=== PATIENT | female | born 1975 | race Caucasian/White ===

== ENCOUNTER 2017-05-05 19:25 | Observation (INO) | payer OTHER ==
[2017-05-05 19:26] VITALS: BP 96/81; PULSE 89; RESP 16; TEMP 98.5; O2SAT 100
[2017-05-05] MEDS ORDERED: SODIUM CHLOR 0.9% 1000 ML INJ 1,000 ML IV SCH (19:43)
[2017-05-05] MEDS ORDERED: SODIUM CHLORIDE 0.9% FLUSH 10 ML FLUSH IV FLUSH PRN (19:45)
[2017-05-05] MEDS ORDERED: ONDANSETRON HCL 4 MG/2 ML VIAL IVP ONE (19:45)
--- NOTE | 2017-05-05 19:49 | PD ---
HPI Chief Complaint: Abdominal Pain Time Seen by Provider: 19:36 Travel History International Travel<30 days: No Contact w/Intl Traveler<30days: No Traveled to known affect area: No History of Present Illness HPI 41-year-old female presents to the ED for evaluation of 12 hour history of abdominal pain and bloating. Patient states when she woke up this morning she had a little bit of abdominal pain. She endorses a small, normal bowel movement that did not resolve her symptoms. She took 2 Aleve and a dose of Gaviscon and went to work. She states that throughout the course of the day the pain has worsened. She endorses passing gas from above and below. She has small meal around 1 PM. She endorses a second bowel movement around 3 PM. She endorses continued bloating, mild nausea. She states the pain waxes and wanes, radiates to the shoulder. Rated 10/10 maximally. Pain improved by lying still. She denies fever or chills. She denies vomiting, melena, hematochezia, dysuria , hematuria. She denies history of similar episodes. She endorses history of section. She denies recent antibiotic use. LMP 10/30. Denies vaginal bleeding or discharge. PFSH Past Medical History ?: Unknown Social History Tobacco Use: No Allergies-Medications (Allergen,Severity, Reaction): Coded Allergies: No Known Allergies (Unverified , 05/05/17) Reported Meds & Prescriptions Reported Meds & Active Scripts Active Reported Crestor (Rosuvastatin Calcium) 10 Mg Tab 10 Mg PO DAILY Aspirin Low Dose (Aspirin) 81 Mg Chew 81 Mg CHEW DAILY Review of Systems Except as stated in HPI: all other systems reviewed are Neg Physical Exam Narrative GENERAL: Well-nourished, well-developed white female in no acute distress. SKIN: Focused skin assessment warm/dry. HEAD: Normocephalic. EYES: No scleral icterus. No injection or drainage. NECK: Supple, trachea midline. No JVD or lymphadenopathy. CARDIOVASCULAR: Regular rate and rhythm without murmurs, gallops, or rubs. RESPIRATORY: Breath sounds equal bilaterally. No accessory muscle use. GASTROINTESTINAL: Abdomen mildly distended, diffusely tender, worse in the left upper and left lower quadrants. No palpable masses. Active bowel sounds. MUSCULOSKELETAL: No cyanosis, or edema. BACK: Nontender without obvious deformity. No CVA tenderness. Data Data Last Documented VS Vital Signs Date Time Temp Pulse Resp B/P (MAP) Pulse Ox O2 Delivery O2 Flow Rate FiO2 05/05/17 21:57 83 19 98/60 (73) 100 Room Air 05/05/17 19:26 98.5 Orders Orders Complete Blood Count With Diff (05/05/17 19:43) Comprehensive Metabolic Panel (05/05/17 19:43) Lipase (05/05/17 19:43) Lactic Acid (05/05/17 19:43) Prothrombin Time / Inr (Pt) (05/05/17 19:43) Act Partial Throm Time (Ptt) (05/05/17 19:43) Urinalysis - C+S If Indicated (05/05/17:43) Ct Abd/Pel W Iv Contrast(Rout) (05/05/17 19:43) Iv Access Insert/Monitor (05/05/17 19:43) Ecg Monitoring (05/05/17 19:43) Oximetry (05/05/17:43) NPO (05/05/17 19:43) Ondansetron Inj (Zofran Inj) (05/05/17 19:45) Sodium Chlor 0.9% 1000 Ml Inj (Ns 1000 M (05/05/17 19:43) Sodium Chloride 0.9% Flush (Ns Flush) (05/05/17 19:45) Ed Urine Pregnancytest Poc (05/05/17 19:43) Iohexol 350 Inj (Omnipaque 350 Inj) (05/05/17 20:54) Sodium Chlor 0.9% 1000 Ml Inj (Ns 1000 M (05/05/17 22:00) Hydromorphone Pf Inj (Dilaudid Pf Inj) (05/05/17 22:00) Cath For Specimen (05/05/17 22:19) Beta Hcg (Quant/Titer) (05/05/17 22:36) Us Pelvis Comp W Dop Transvag (05/05/17 21:46) Type And Screen (05/05/17 22:48) Labs Laboratory Tests Test 05/05/17 20:05 05/05/17 22:25 White Blood Count 12.6 TH/MM3 Red Blood Count 3.70 MIL/MM3 Hemoglobin 10.9 GM/DL Hematocrit 32.2 % Mean Corpuscular Volume 87.0 FL Mean Corpuscular Hemoglobin 29.3 PG Mean Corpuscular Hemoglobin Concent 33.7 % Red Cell Distribution Width 12.4 % Platelet Count 203 TH/MM3 Mean Platelet Volume 8.3 FL Neutrophils (%) (Auto) 87.9 % Lymphocytes (%) (Auto) 6.5 % Monocytes (%) (Auto) 4.9 % Eosinophils (%) (Auto) 0.4 % Basophils (%) (Auto) 0.3 % Neutrophils # (Auto) 11.0 TH/MM3 Lymphocytes # (Auto) 0.8 TH/MM3 Monocytes # (Auto) 0.6 TH/MM3 Eosinophils # (Auto) 0.0 TH/MM3 Basophils # (Auto) 0.0 TH/MM3 CBC Comment DIFF FINAL Differential Comment Prothrombin Time 10.7 SEC Prothromb Time International Ratio 1.0 RATIO Activated Partial Thromboplast Time 22.1 SEC Blood Urea Nitrogen 13 MG/DL Creatinine 0.70 MG/DL Random Glucose 111 MG/DL Total Protein 6.5 GM/DL Albumin 3.5 GM/DL Calcium Level 8.2 MG/DL Alkaline Phosphatase 43 U/L Aspartate Amino Transf (AST/SGOT) 19 U/L Alanine Aminotransferase (ALT/SGPT) 52 U/L Total Bilirubin 0.4 MG/DL Sodium Level 136 MEQ/L Potassium Level 3.9 MEQ/L Chloride Level 105 MEQ/L Carbon Dioxide Level 26.2 MEQ/L Anion Gap 5 MEQ/L Estimat Glomerular Filtration Rate 91 ML/MIN Lactic Acid Level 1.1 mmol/L Lipase 84 U/L Human Chorionic Gonadotropin, Quant LESS THAN 1 MIU/ML Urine Color LIGHT-YELLOW Urine Turbidity CLEAR Urine pH 6.5 Urine Specific [place] GREATER THAN 1.050 Urine Protein 30 mg/dL Urine Glucose (UA) NEG mg/dL Urine Ketones 40 mg/dL Urine Occult Blood NEG Urine Nitrite NEG Urine Bilirubin NEG Urine Urobilinogen LESS THAN 2.0 MG/DL Urine Leukocyte Esterase NEG Urine RBC 1 /hpf Urine WBC 1 /hpf Urine Squamous Epithelial Cells 1 /hpf Urine Mucus FEW /lpf Microscopic Urinalysis Comment CULT NOT INDICATED MDM Medical Decision Making Medical Screen Exam Complete: Yes Emergency Medical Condition: Yes Differential Diagnosis bowel obstruction versus pyelonephritis versus appendicitis versus colitis versus other Narrative Course 41-year-old female presents to the ED for evaluation of 12 hour history of abdominal pain and bloating. Worsening throughout the day. She endorses passing gas from above and below. She has small meal around 1 PM. She endorses a few small bowel movements throughout the day. She states the pain waxes and wanes, radiates to the shoulder. She endorses history of section. LMP 10/ 30. Denies vaginal bleeding or discharge. the patient is hypotensive on presentation,. Diffuse belly pain, worse in the LLQ with left CVA tenderness. Iv was established. Patient was administered 1L NS , 4 mg zofran, 4mg Morphine IV. CBC: WBC 12.6 Hgb 10.9 CMP: mild hypocalcemia UA: no culture indicated. CT: ascities with fluid collection near left ovary. Dr. Denis and I reviewed the workup and results. Pelvis US ordered and pending. 2nd liter of fluid ordered. Dr. Denis performed a pelvic exam which was unremarkable. Patient signed out to Dr. Denis at end of shift. Please see her note for disposition. Cristal Heredia May 05, 2017 19:49
[2017-05-05 20:35] LABS: BASOPHIL % 0.3 % (0.0-2.0); EOSINOPHIL % 0.4 % (0.0-4.0); HEMATOCRIT 32.2 % (35.0-46.0); HEMO FLAGS DIFF FINAL; LYMPH % 6.5 % (9.0-44.0); LYMPHOCYTE # 0.8 TH/MM3 (1.0-4.8); MEAN CORPUSCULAR HEMOGLOBIN 29.3 PG (27.0-34.0); MEAN CORPUSCULAR HGB CONC 33.7 % (32.0-36.0); MONO % 4.9 % (0.0-8.0); NEUT % 87.9 % (16.0-70.0); PLATELET COUNT 203 TH/MM3 (150-450); RED CELL DISTRIBUTION WIDTH 12.4 % (11.6-17.2); WHITE BLOOD COUNT 12.6 TH/MM3 (4.0-11.0)
[2017-05-05 20:45] LABS: APTT (PATIENT) 22.1 SEC (24.3-30.1); PROTHROMBIN TIME - PATIENT 10.7 SEC (9.8-11.6)
[2017-05-05 20:53] LABS: ANION GAP 5 MEQ/L (5-15); AST (GOT) 19 U/L (15-37); BICARBONATE 26.2 MEQ/L (21.0-32.0); BLOOD UREA NITROGEN 13 MG/DL (7-18); CHLORIDE 105 MEQ/L (98-107); GLOMERULAR FILTRATION RATE 91 ML/MIN (>89); POTASSIUM 3.9 MEQ/L (3.5-5.1); SODIUM (NA) 136 MEQ/L (136-145)
[2017-05-05] MEDS ORDERED: IOHEXOL 350 MG/ML 10 ML VIAL (for RAD DIAG) IVCONTRAST ONE (20:54)
[2017-05-05 20:57] LABS: ALKALINE PHOSPHATASE 43 U/L (45-117); ALT (GPT) 52 U/L (10-53); TOTAL BILIRUBIN ADULT 0.4 MG/DL (0.2-1.0)
--- NOTE | 2017-05-05 21:30 | RADRPT ---
EXAM DATE/TIME: 05/05/2017 20:47 [facility] COMPARISON: No previous studies available for comparison. INDICATIONS : Diffuse abdominal pain with bloating and nausea. IV CONTRAST: 95 cc Omnipaque 350 (iohexol) IV ORAL CONTRAST: No oral contrast ingested. RADIATION DOSE: 7.60 CTDIvol (mGy) MEDICAL HISTORY : None SURGICAL HISTORY : None. ENCOUNTER: Initial ACUITY: 1 day PAIN SCALE: 10/10 LOCATION: All quadrants. TECHNIQUE: Volumetric scanning of the abdomen and pelvis was performed. Using automated exposure control and ad justment of the mA and/or kV according to patient size, radiation dose was kept as low as reasonably achievable to obtain optimal diagnostic quality images. DICOM format image data is available electro nically for review and comparison. FINDINGS: LOWER LUNGS: The visualized lower lungs are clear. LIVER: There are 2 rounded low density lesions in the right lobe of the larger is in the posterior segment m easuring 10 mm. These cannot be further characterized. No calcified gallstones. No intra-or extrah epatic biliary ductal dilatation. SPLEEN: Normal size without lesion. PANCREAS: Within normal limits. KIDNEYS: Normal in size and shape. There is no mass, stone or hydronephrosis. ADRENAL GLANDS: Within normal limits. VASCULAR: There is no aortic aneurysm. BOWEL/MESENTERY: No dilated loops of small or large bowel. There is a significant amount of ascites, largest in colle ction in the right lower quadrant, measuring up to 8 cm in width. Free fluid also tracks along the l eft paracolic other, and through the mesentery and underneath both left and right hemidiaphragm. The re is also some mild free fluid in the pelvis about the fundus of the uterus. ABDOMINAL WALL: Within normal limits. RETROPERITONEUM: There is no lymphadenopathy. BLADDER: No wall thickening or mass. REPRODUCTIVE: Anteverted uterus. Some free fluid about the body of the uterus. Fullness in the left adnexal regio n which measures 4 cm having an appearance characteristic of ovary surrounded by free fluid. INGUINAL: There is no lymphadenopathy or hernia. MUSCULOSKELETAL: Within normal limits for patient age. CONCLUSION: 1. Significant amount of ascites in the abdomen, with largest collection of fluid in the right lower quadrant. 2. 2 small lesions in the liver are hypodense and round, possibly cystic, but cannot be further terence cterized on CT. 3. Prominence to the left adnexa suggesting focal fluid surrounding the left ovary. Brady Babb MD on May 05, 2017 at 21:23 Board Certified Radiologist. This report was verified electronically.
[2017-05-05 21:57] VITALS: BP 98/60; PULSE 83; RESP 19; O2SAT 100
[2017-05-05] MEDS ORDERED: HYDROmorphone HCL PF 0.5 MG/0.5 ML SYRINGE IV PUSH ONE ×2 (22:00)
[2017-05-05] MEDS ORDERED: SODIUM CHLOR 0.9% 1000 ML INJ 1,000 ML IV ONE ×2 (22:00→23:45)
[2017-05-05 22:10] VITALS: BP 96/53; PULSE 76; RESP 20; O2SAT 100
[2017-05-05] MEDS ORDERED: ASPI81CH6 CHEW (22:13)
[2017-05-05] MEDS ORDERED: ROSU10 PO (22:13)
[2017-05-05 22:36] LABS: BLOOD, URINE NEG (NEG); COMMENT (UR) CULT NOT INDICATED; CULTURE IF INDICATED CULT NOT INDICATED; GLUCOSE,URINE NEG (NEG); KETONE, URINE 40 mg/dL (NEG); MUCUS URINE FEW /lpf (OCC); NITRITE,URINE NEG (NEG); PH, URINE 6.5 (5.0-8.5); SQUAMOUS EPITHELIAL CELL URINE 1 /hpf (0-5); URINE COLOR LIGHT-YELLOW (YELLW/STRAW)
[2017-05-05 23:01] LABS: BETA HCG QUANT LESS THAN 1 MIU/ML (0-5)
--- NOTE | 2017-05-05 23:08 | RADRPT ---
EXAM DATE/TIME: 05/05/2017 21:57 [facility] COMPARISON: No previous studies available for comparison. INDICATIONS : Pelvic pain with distention. MEDICAL HISTORY : Hypercholesterolemia. Cerebrovascular accident. SURGICAL HISTORY : section. PRO repair. ENCOUNTER: Initial ACUITY: 1 day PAIN SCORE: 10/10 LOCATION: Bilateral pelvis MEASUREMENTS: UTERUS: 8.6 x 5.8 x 5.2 cm ENDOMETRIAL STRIPE: 8 mm FINDINGS: UTERUS: The myometrium has homogeneous echotexture without mass. The endometrial stripe has a homogeneous ech otexture. RIGHT OVARY: The right ovary is not identified. LEFT OVARY: Markedly abnormal appearance to the left adnexa with a complex moderately heterogeneous echotexture m ass like appearance measuring 11.5 x 7.3 x 5.2 cm. There is some mild internal flow seen by color Do ppler. Within the central portion of the mass is a rounded echogenic area surrounded by a crescentic collection of fluid; this corresponds with the abnormality seen on CT scan. This rounded area appea rs to be within the larger 1 cm mass. MISCELLANEOUS: Free fluid is seen in the cul-de-sac and a prominent amount of free fluid is seen in the right adnexa l region. CONCLUSION: Abnormal appearance the left adnexa with greater than 11 cm mass with heterogeneous echotexture, subt le small cystic areas, and mild internal flow by color Doppler. Ovarian malignancy needs to be exclu ded. Brady Babb MD on May 05, 2017 at 22:58 Board Certified Radiologist. This report was verified electronically.
[2017-05-05 23:30] VITALS: BP 87/50; PULSE 68; RESP 18; O2SAT 100
--- NOTE | 2017-05-05 23:32 | PD ---
Physical Exam Date Seen by Provider: May 05, 2017 Time Seen by Provider: 22:50 Narrative GENERAL: Well-developed well-nourished female in no acute distress no respiratory distress resting supine after being witnessed to have a near syncopal episode by her in the exam room and assisted onto the bed. Patient did not have loss of consciousness. Patient did have vital signs consistent with a vasovagal event. SKIN: Warm and dry. Mild pallor HEAD: Normocephalic. EYES: No scleral icterus. No injection or drainage. NECK: Supple, trachea midline. No JVD or lymphadenopathy. CARDIOVASCULAR: Decreased Regular rate and rhythm without murmurs, gallops, or rubs. RESPIRATORY: Breath sounds equal bilaterally. No accessory muscle use. GASTROINTESTINAL: Abdomen soft, mild right upper quadrant tenderness without guarding or rebound, nondistended. Pelvic exam: Normal external exam no redness induration or lesions; speculum exam no blood no clots no tissue cervical os closed scant mucus noted; bimanual exam no cervical motion tenderness no adnexal mass or tenderness. MUSCULOSKELETAL: No cyanosis, or edema. BACK: Nontender without obvious deformity. No CVA tenderness. Data Data Last Documented VS Vital Signs Date Time Temp Pulse Resp B/P (MAP) Pulse Ox O2 Delivery O2 Flow Rate FiO2 05/05/17 23:30 68 18 87/50 (62) 100 Nasal Cannula 2.00 05/05/17 19:26 98.5 Orders Orders Complete Blood Count With Diff (05/05/17 19:43) Comprehensive Metabolic Panel (05/05/17 19:43) Lipase (05/05/17 19:43) Lactic Acid (05/05/17 19:43) Prothrombin Time / Inr (Pt) (05/05/17 19:43) Act Partial Throm Time (Ptt) (05/05/17 19:43) Urinalysis - C+S If Indicated (05/05/17 19:43) Ct Abd/Pel W Iv Contrast(Rout) (05/05/17 19:43) Iv Access Insert/Monitor (05/05/17 19:43) Ecg Monitoring (05/05/17 19:43) Oximetry (05/05/17 19:43) NPO (05/05/17 19:43) Ondansetron Inj (Zofran Inj) (05/05/17 19:45) Sodium Chlor 0.9% 1000 Ml Inj (Ns 1000 M (05/05/17 19:43) Sodium Chloride 0.9% Flush (Ns Flush) (05/05/17 19:45) Ed Urine Pregnancytest Poc (05/05/17 19:43) Iohexol 350 Inj (Omnipaque 350 Inj) (05/05/17 20:54) Sodium Chlor 0.9% 1000 Ml Inj (Ns 1000 M (05/05/17 22:00) Hydromorphone Pf Inj (Dilaudid Pf Inj) (05/05/17 22:00) Cath For Specimen (05/05/17 22:19) Beta Hcg (Quant/Titer) (05/05/17 22:36) Us Pelvis Comp W Dop Transvag (05/05/17 21:46) Type And Screen (05/05/17 22:48) Wet Prep Profile (05/05/17 23:07) Gc And Chlamydia Pcr (05/05/17 23:07) Hematocrit (Hct) (05/05/17 23:32) Hemoglobin (Hgb) (05/05/17 23:32) Red Blood Cells (Rbc) (05/05/17 23:32) Blood Product Administration (05/05/17 23:32) Sodium Chlor 0.9% 250 Ml Inj (Ns 250 Ml (05/05/17 23:45) Sodium Chlor 0.9% 1000 Ml Inj (Ns 1000 M (05/05/17 23:45) Sodium Chlor 0.9% 1000 Ml Inj (Ns 1000 M (05/06/17 00:30) Labs Laboratory Tests Test 05/05/17 20:05 05/05/17 22:25 05/05/17 23:10 05/05/17 23:35 White Blood Count 12.6 TH/MM3 Red Blood Count 3.70 MIL/MM3 Hemoglobin 10.9 GM/DL 8.6 GM/DL Hematocrit 32.2 % 24.5 % Mean Corpuscular Volume 87.0 FL Mean Corpuscular Hemoglobin 29.3 PG Mean Corpuscular Hemoglobin Concent 33.7 % Red Cell Distribution Width 12.4 % Platelet Count 203 TH/MM3 Mean Platelet Volume 8.3 FL Neutrophils (%) (Auto) 87.9 % Lymphocytes (%) (Auto) 6.5 % Monocytes (%) (Auto) 4.9 % Eosinophils (%) (Auto) 0.4 % Basophils (%) (Auto) 0.3 % Neutrophils # (Auto) 11.0 TH/MM3 Lymphocytes # (Auto) 0.8 TH/MM3 Monocytes # (Auto) 0.6 TH/MM3 Eosinophils # (Auto) 0.0 TH/MM3 Basophils # (Auto) 0.0 TH/MM3 CBC Comment DIFF FINAL Differential Comment Prothrombin Time 10.7 SEC Prothromb Time International Ratio 1.0 RATIO Activated Partial Thromboplast Time 22.1 SEC Blood Urea Nitrogen 13 MG/DL Creatinine 0.70 MG/DL Random Glucose 111 MG/DL Total Protein 6.5 GM/DL Albumin 3.5 GM/DL Calcium Level 8.2 MG/DL Alkaline Phosphatase 43 U/L Aspartate Amino Transf (AST/SGOT) 19 U/L Alanine Aminotransferase (ALT/SGPT) 52 U/L Total Bilirubin 0.4 MG/DL Sodium Level 136 MEQ/L Potassium Level 3.9 MEQ/L Chloride Level 105 MEQ/L Carbon Dioxide Level 26.2 MEQ/L Anion Gap 5 MEQ/L Estimat Glomerular Filtration Rate 91 ML/MIN Lactic Acid Level 1.1 mmol/L Lipase 84 U/L Human Chorionic Gonadotropin, Quant LESS THAN 1 MIU/ML Urine Color LIGHT-YELLOW Urine Turbidity CLEAR Urine pH 6.5 Urine Specific [place] GREATER THAN 1.050 Urine Protein 30 mg/dL Urine Glucose (UA) NEG mg/dL Urine Ketones 40 mg/dL Urine Occult Blood NEG Urine Nitrite NEG Urine Bilirubin NEG Urine Urobilinogen LESS THAN 2.0 MG/DL Urine Leukocyte Esterase NEG Urine RBC 1 /hpf Urine WBC 1 /hpf Urine Squamous Epithelial Cells 1 /hpf Urine Mucus FEW /lpf Microscopic Urinalysis Comment CULT NOT INDICATED Clue Cells (Wet Prep) NONE SEEN Vaginal Trichomonas (Wet Prep) NONE SEEN Vaginal Yeast (Wet Prep) PRESENT MDM Medical Record Reviewed: Yes Supervised Visit with ANAHI: Yes Interpretation(s) POC HCG: negative Last Impressions Abdomen/Pelvis/Transvag US 05/05/[id number] Signed Impressions: Service Date/Time: Friday, May 05, 2017 21:57 - CONCLUSION: Abnormal appearance the left adnexa with greater than 11 cm mass with heterogeneous echotexture, subtle small cystic areas, and mild internal flow by color Doppler. Ovarian malignancy needs to be excluded. Brady Babb MD Abdomen/Pelvis CT 05/05/171942 Signed Impressions: Service Date/Time: Friday, May 05, 2017 20:47 - CONCLUSION: 1. Significant amount of ascites in the abdomen, with largest collection of fluid in the right lower quadrant. 2. 2 small lesions in the liver are hypodense and round, possibly cystic, but cannot be further characterized on CT. 3. Prominence to the left adnexa suggesting focal fluid surrounding the left ovary. Brady Babb MD CBC & BMP Diagram 05/05/17 20:05 Total Protein 6.5, Albumin 3.5, Calcium Level 8.2 L, Alkaline Phosphatase 43 L, Aspartate Amino Transf (AST/SGOT) 19, Alanine Aminotransferase (ALT/SGPT) 52, Total Bilirubin 0.4 Vital Signs Date Time Temp Pulse Resp B/P (MAP) Pulse Ox O2 Delivery O2 Flow Rate FiO2 05/05/17 21:57 83 19 98/60 (73) 100 Room Air 05/05/17 19:26 98.5 89 16 96/81 (86) 100 Room Air Differential Diagnosis Abdominal pain, ruptured ovarian cyst, ruptured ectopic , blighted ovum , ovarian torsion, PID with Evans-Yogesh Odin, biliary colic, pancreatitis Narrative Course Patient placed on IV fluids with specimens collected hemoglobin on CBC is 10.9 [id number] hCG is negative CT abdomen and pelvis was noted to have significant ascites without obvious evidence of intraperitoneal blood Patient had near syncopal episode and went to assist patient and patient was noted to be hypotensive and bradycardic consistent with a vasovagal event; patient was placed on stretcher and placed supine; patient given IV fluid bolus. Patient voicing no complaints other than continues to have abdominal discomfort although not as severe as noted upon arrival Patient resting comfortably pelvic exam performed which reveals no gross blood no cervical motion tenderness no adnexal mass or tenderness on palpation Quantitative hCG is less than one, negative Ultrasound is concerning for possible left adnexal mass and free fluid is noted in the pelvis and specifically around the right adnexa this is corresponds with CAT scan which showed large amount of ascites of unclear etiology; call placed to patient's staff interpreter Stat repeat hemoglobin ordered along with type and cross for 2 units of blood to be On hold patient's blood pressure on repeat has decreased to 87/53 heart rate remains 68 not elevated; patient's staff interpreter Dr. Huston is referring office records and will be in to see patient in the emergency department. Repeat hemoglobin 8.6; patient had received 2 L of normal saline prior to serum collection. Patient's receiving an additional liter and currently systolic pressure is 96 mmHg. Information shared with her provider Physician Communication Physician Communication call placed to patients professor of nursing Dr Chu 23:[address] Chu -- wbi Diagnosis Primary Impression: Abdominal pain Admitting Information Admitting Physician Requests: Observation Jessica Denis MD May 05, 2017 23:32
[2017-05-05] MEDS ORDERED: SODIUM CHLOR 0.9% 250 ML INJ 250 ML IV ONE (23:45)
[2017-05-05 23:53] LABS: HEMATOCRIT 24.5 % (35.0-46.0)
[2017-05-06] VITALS (9 sets, daily range): BP systolic 92–102; BP diastolic 50–58; PULSE 63–84; RESP 14–20; TEMP 97.8–98.2; O2SAT 94–100
[2017-05-06] MEDS ORDERED: SODIUM CHLOR 0.9% 1000 ML INJ 1,000 ML IV SCH (00:30)
[2017-05-06 01:08] LABS: CHLAMYDIA PCR NOT DETECTED (NOT DETECT); NEISSERIA PCR NOT DETECTED (NOT DETECT)
--- NOTE | 2017-05-06 01:16 | PD.CONS ---
History of Present Illness Service gynecology Consult Requested By Jessica Denis Reason for Consult acute abdomen internal hemorrhage near syncope Primary Care Physician Familia Driscoll MD Diagnoses: (1) Mass of left ovary (2) Abdominal pain History of Present Illness This 41 y/o presented to the ER with increasing abdominal pain and near syncope. CT and TVUS are suspicious for a left ovarian mass with ascites, but with dropping hemaglobin over the course of 3 hours, ruptured hemorrhagic cyst has become the most likely diagnosis. I was asked to evaluate her emergently. After reviewing the imaging, bedside examination of the patient, discussion, it is evident the patient should have exploratory surgery. The patient states her pain came on gradually, rated 10 out of 10. She has felt dizzy. She last ate 12 hours ago and has had minimal p.o. fluid in the past 4 hours. She is on oral contraceptives, with which she is compliant. She has had three sections. Review of Systems Constitutional: COMPLAINS OF: Diaphoretic episodes Gastrointestinal: COMPLAINS OF: Abdominal pain Past Family Social History Allergies: Coded Allergies: No Known Allergies (Unverified , 05/05/17) Past Medical History history of anemia migraine wuith aura patent foramen ovale history of TIA Past Surgical History x 3 history of TIA with negative cardio work [place] [address] 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 SKIN: No rashes, ecchymoses or lesions. Cool and dry. HEAD: Atraumatic. Normocephalic. No temporal or scalp tenderness. EYES: Pupils equal round and reactive. Extraocular motions intact. No scleral icterus. No injection or drainage. ENT: Nose without bleeding, purulent drainage or septal hematoma. Throat without erythema, tonsillar hypertrophy or exudate. Uvula midline. Airway patent. NECK: Trachea midline. No JVD or lymphadenopathy. Supple, nontender, no meningeal signs. CARDIOVASCULAR: Regular rate and rhythm without murmurs, gallops, or rubs. RESPIRATORY: Clear to auscultation. Breath sounds equal bilaterally. No wheezes , rales, or rhonchi. GASTROINTESTINAL: Abdomen soft, non-tender, nondistended. No hepato-splenomegaly , or palpable masses. No guarding. MUSCULOSKELETAL: Extremities without clubbing, cyanosis, or edema. No joint tenderness, effusion, or edema noted. No calf tenderness. Negative Homans sign bilaterally. NEUROLOGICAL: Awake and alert. Cranial nerves II through XII intact. Motor and sensory grossly within normal limits. Five out of 5 muscle strength in all muscle groups. Normal speech. Laboratory Laboratory Tests Test 05/05/17 20:05 05/05/17 22:25 05/05/17 23:10 05/05/17 23:35 White Blood Count 12.6 Red Blood Count 3.70 Hemoglobin 10.9 8.6 Hematocrit 32.2 24.5 Mean Corpuscular Volume 87.0 Mean Corpuscular Hemoglobin 29.3 Mean Corpuscular Hemoglobin Concent 33.7 Red Cell Distribution Width 12.4 Platelet Count 203 Mean Platelet Volume 8.3 Neutrophils (%) (Auto) 87.9 Lymphocytes (%) (Auto) 6.5 Monocytes (%) (Auto) 4.9 Eosinophils (%) (Auto) 0.4 Basophils (%) (Auto) 0.3 Neutrophils # (Auto) 11.0 Lymphocytes # (Auto) 0.8 Monocytes # (Auto) 0.6 Eosinophils # (Auto) 0.0 Basophils # (Auto) 0.0 CBC Comment DIFF FINAL Differential Comment Prothrombin Time 10.7 Prothromb Time International Ratio 1.0 Activated Partial Thromboplast Time 22.1 Blood Urea Nitrogen 13 Creatinine 0.70 Random Glucose 111 Total Protein 6.5 Albumin 3.5 Calcium Level 8.2 Alkaline Phosphatase 43 Aspartate Amino Transf (AST/SGOT) 19 Alanine Aminotransferase (ALT/SGPT) 52 Total Bilirubin 0.4 Sodium Level 136 Potassium Level 3.9 Chloride Level 105 Carbon Dioxide Level 26.2 Anion Gap 5 Estimat Glomerular Filtration Rate 91 Lactic Acid Level 1.1 Lipase 84 Human Chorionic Gonadotropin, Quant LESS THAN 1 Urine Color LIGHT-YELLOW Urine Turbidity CLEAR Urine pH 6.5 Urine Specific [place] GREATER THAN 1.050 Urine Protein 30 Urine Glucose (UA) NEG Urine Ketones 40 Urine Occult Blood NEG Urine Nitrite NEG Urine Bilirubin NEG Urine Urobilinogen LESS THAN 2.0 Urine Leukocyte Esterase NEG Urine RBC 1 Urine WBC 1 Urine Squamous Epithelial Cells 1 Urine Mucus FEW Microscopic Urinalysis Comment CULT NOT INDICATED Clue Cells (Wet Prep) NONE SEEN Vaginal Trichomonas (Wet Prep) NONE SEEN Vaginal Yeast (Wet Prep) PRESENT Result Diagram: 05/05/17 2335 05/05/172004 Imaging Imaging reviewed. Left ovarian mass poorly defined. Ascites could be partially coagulated blood. Course Patient has dropping hemaglobin indicating internal bleeding and need for surgical intervention. Assessment and Plan Problem List: (1) History of TIA (transient ischemic attack) ICD Codes: Z86.73 - Personal history of transient ischemic attack (TIA), and cerebral infarction without residual deficits (2) Status post patent foramen ovale closure ICD Codes: Z98.890 - Other specified postprocedural states; Z87.74 - Personal history of (corrected) congenital malformations of heart and circulatory system (3) Anemia ICD Codes: D64.9 - Anemia, unspecified (4) Abdominal pain ICD Codes: R10.9 - Unspecified abdominal pain Status: Acute (5) Mass of left ovary ICD Codes: N83.9 - Noninflammatory disorder of ovary, fallopian tube and broad ligament, unspecified Assessment and Plan patient with poorly defined left ovarian mass and intraperitoneal fluid collection, most likely internal hemorrhage from a bleeding ovarian cyst patient is hypotensive and will need emergent surgical intervention. Preparing for laparoscopy, possible laparotomy. Problem Qualifiers (1) Abdominal pain: Qualified Codes: R10.32 - Left lower quadrant pain Ellen Chu MD May 06, 2017 01:15
[2017-05-06] MEDS ORDERED: ceFAZolin INJ 1,000 MG VIAL ONE (01:40)
[2017-05-06] MEDS ORDERED: ACETAMINOPHEN 1000 MG/100 ML 100 ML IV ONE (02:05)
[2017-05-06] MEDS ORDERED: DO NOT ADM ANY ANTICOAGULANT DRUGS PRN ×2 (03:00→04:00)
[2017-05-06] MEDS ORDERED: ONDANSETRON HCL 4 MG/2 ML VIAL IV PUSH PRN (03:30)
[2017-05-06] MEDS ORDERED: LACTATED RINGER'S 1000 ML INJ 1,000 ML IV SCH (03:30)
[2017-05-06] MEDS ORDERED: ONDANSETRON HCL 4 MG/2 ML VIAL IM PRN (03:45)
[2017-05-06] MEDS ORDERED: KETOROLAC TROMETHAMINE 30 MG/ML (IVP) VIAL IV PUSH PRN (03:45)
[2017-05-06] MEDS ORDERED: *morphine SULFATE 8 MG/ML PERIprocedure ONLY ONE (04:03)
[2017-05-06] MEDS: oxyCODONE/ACETAMINOPHEN 7.5 MG/325 MG TAB PO PRN ×2 (07:30→11:13)
[2017-05-06 07:56] LABS: HEMATOCRIT 26.5 % (35.0-46.0)
--- NOTE | 2017-05-06 09:24 | MP ---
cc: ELLEN CHU MD DATE OF SURGERY 05/06/2017 PREOPERATIVE DIAGNOSIS Left ovarian mass abdominal pain and hemorrhagic shock. POSTOPERATIVE DIAGNOSIS Ruptured left ovarian cyst, hemoperitoneum, anemia from acute blood loss, female sterilization. OPERATION Laparoscopy, left salpingo-oophorectomy, right salpingectomy. ANESTHESIA Dr. Hoyt, general endotracheal COMPLICATIONS None ESTIMATED BLOOD LOSS 900 cc SURGEON Ellen Chu MD ASSISTANT FILM EDITOR Alysha INSTALLER APPRENTICE None URINE OUTPUT 300 cc INFUSIONS Received one unit packed red blood cells intraoperatively. INDICATIONS This 41-year-old 4, para 3-0-1-3 is my private patient for several years. She presented to the emergency room this afternoon after having escalating abdominal pain throughout the day and feeling faint. She had a near syncopal episode at home and again in the emergency room. Her initial hemoglobin was 10.9 and three hours later it was 8.6. During that time, her vital signs were stable and without tachycardia, but her blood pressure was low and she could not tolerate movement. CT scan and ultrasound both showed a mass in the left ovary and fluid in the abdomen which was read as ascites versus blood. FINDINGS At the time of laparoscopic surgery, the patient was found to have 900 cc of blood in her abdomen most of which was clotted or semi-congealed. She was not bleeding actively from the cystic mass in her left ovary. It appeared to be a corpus luteum cyst, but as we had discussed with the patient prior to surgery, we had planned on removing the left tube and ovary for fear of continued hemorrhage postoperatively or an abnormal cyst that would not be discovered until later. The right tube and ovary appeared normal and the uterus was normal with typical scarring near the bladder from three prior sections. The rest of the abdomen appeared normal to laparoscopic view. PROCEDURE The patient was taken to the operating room, placed supine on the operating room table. After general endotracheal anesthetic, she was prepped and draped in low stirrups in the dorsal lithotomy position. A Schilling catheter was placed and an open-sided speculum was placed in the vagina. The anterior lip of the cervix was grasped with a single-tooth tenaculum. A Hulka uterine manipulator was inserted and the other instruments were removed. After regloving, a 1 cm incision was made in the umbilicus. A Veress needle was inserted and 3 liters of CO2 were instilled without difficulty. Laparoscopic trocar was placed and the camera was used to find the findings described above. 5-mm ports were inserted in the right and left lower quadrants using transillumination and direct visualization to avoid major blood vessels. Suction irrigation was used to evacuate the blood from the pelvis with 900 cc of blood being accounted for before irrigation was used. The left ovarian mass was identified and appeared typical for a corpus luteum cyst that was not actively bleeding. However, the spot where it had ruptured was still visible and she had a 1 cm paratubal cyst so considering the unknown nature of the ovarian cyst and the potential for continued bleeding after suction acute bleed, the left tube and over ovary were removed. This was done with a harmonic scalpel for the ovary from the uterus at the utero-ovarian ligament. The fallopian tube was then transected also with the with the harmonic device. The infundibulopelvic ligament was identified and transected and the mesosalpinx and ovary were then from the broad ligament. The tube and ovary were then placed in an EndoCatch bag and brought out through the umbilical incision intact. Further suction and irrigation was performed with careful inspection of the pelvic organs after making sure that the right tube and ovary appeared normal and there was no active bleeding, as planned, a Kleppinger forceps was used to cauterize the midportion of the right fallopian tube in three bites making sure that the conduction of the bipolar electricity dropped completely before going onto the second and third bites. That procedure being complete, the pneumoperitoneum was released. The ports were removed. The umbilical incision was closed with 0 Vicryl in [id number] fashion. Skin edges were reapproximated with 4-0 Monocryl. Dermabond was applied as a dressing. The instrument was removed from the uterus. The patient was transferred to the recovery room awake and breathing on her own. We did initiate transfusion of one unit of packed red blood cells intraoperatively. Her urine output and vital signs remained stable throughout the surgery. She received one gram of Ancef intraoperatively. Sponge, needle and instrument counts were correct. It is anticipated she will go home later today when she has fully recovered from anesthesia. MD NITHYA Branch/FABIENNE /3:54 AM /9:15 AM
[2017-05-06] MEDS ORDERED: LIDOCAINE HCL 1% PF 5 ML SYRINGE OTHER ONE (12:00)
[2017-05-06] MEDS ORDERED: DEXAMETHASONE SOD PHOS 4 MG/ML VIAL IV ONE (12:00)
[2017-05-06] MEDS ORDERED: PROPOFOL 200 MG/20 ML AMP IV ONE (12:00)
[2017-05-06] MEDS ORDERED: GLYCOPYRROLATE 1 MG/5 ML SYRINGE IV PUSH ONE (12:00)
[2017-05-06] MEDS ORDERED: LACTATED RINGER'S 1000 ML INJ 1,000 ML IV ONE (12:00)
[2017-05-06] MEDS ORDERED: NEOSTIGMINE 3 MG/3 ML SYR IV ONE (12:00)
[2017-05-06] MEDS ORDERED: ROCURONIUM INJ 50 MG/5 ML SYRINGE IV PUSH ONE (12:00)
[2017-05-06] MEDS ORDERED: ONDANSETRON HCL 4 MG/2 ML VIAL IV PUSH ONE (12:00)
[2017-05-06] MEDS ORDERED: SUCCINYLCHOLINE CHLORIDE 100 MG/5 ML SYRINGE IV PUSH ONE (12:00)
== END 2017-05-06 12:04 | disposition home or self-care (01) ==
LOC: NEPC 19:25 → NEDA 05-06 01:29 → N06B 05-06 04:41
PROVIDERS: ADMIT Obstetrics & Gynecology; ATTEND Obstetrics & Gynecology
DX: N83.12 Corpus luteum cyst of left ovary (principal); N83.8 Other noninflammatory disorders of ovary, fallopian tube and broad ligament; R57.8 Other shock; K66.1 Hemoperitoneum; D62 Acute posthemorrhagic anemia; R55 Syncope and collapse; R42 Dizziness and giddiness; R11.0 Nausea; E83.51 Hypocalcemia; R18.8 Other ascites; E78.00 Pure hypercholesterolemia, unspecified; Z86.73 Personal history of transient ischemic attack (TIA), and cerebral infarction without residual deficits; Z87.74 Personal history of (corrected) congenital malformations of heart and circulatory system; Z79.899 Other long term (current) drug therapy; Z79.82 Long term (current) use of aspirin
CPT/HCPCS: 00840; 36430; 58661; 74177; 76830; 76856; 80053; 81001; 83605; 83690; 84702; 84703; 85014; 85018; 85025; 85610; 85730; 86850; 86900; 86901; 86920; 87210; 87491; 87591; 88305; 93975; 96361; 96374; 96375; 99285; G0378; J0131; J0690; J1170; J1885; J2270; J2405; J7030; J7120; P9016; P9612; Q9967; J0330; J1100; J2710; J3010